=== PATIENT | female | born 1975 | race Caucasian/White ===

== ENCOUNTER 2017-04-27 12:02 | Emergency (ER) | payer BC, OTHER, SELFPAY ==
[2017-04-27 12:40] LABS: #Basophils 0.1 thou/uL (0.0-0.2); #Eosinphils 0.4 thou/uL (0.0-0.7); #Lymphocytes 3.1 thou/uL (1.20-3.40); #Monocytes 0.7 thou/uL (0.11-0.59); #Neutrophils 3.7 thou/uL (1.40-6.50); %Basophils 1.6 % (0.0-1.0); %Eosinophils 5.5 % (0.0-10.0); %Lymphocytes 38.6 % (21.0-51.0); %Neutrophils 45.3 % (42.0-75.0); Hemoglobin 13.7 g/dL (12.0-16.0); Mean Corpuscular HGB CONC 33.7 g/dL (32.0-36.0); Mean Corpuscular Hemoglobin 32.3 pg (27.0-31.0); Mean Corpuscular Volume 95.9 fl (81.0-99.0); Mean Platelet Volume 6.5 fL (7.4-10.4); Platelet Count 358 thou/uL (130-400); RBC Distribution Width 11.2 % (11.5-14.5); Red Blood Cell (RBC) Count 4.24 mill/uL (4.20-5.40); White Blood Cell (WBC) Count 8.1 thou/uL (4.8-10.8)
[2017-04-27 12:57] LABS: ALT (SGPT) 35 U/L (8-55); AST (SGOT) 21 U/L (5-34); Albumin 3.6 g/dL (3.5-5.0); Alkaline Phosphatase 82 U/L (40-150); Anion Gap 12 mmol/L (10-20); BUN (Urea Nitrogen) 9 mg/dL (7.0-18.7); Bilirubin, Total 0.3 mg/dL (0.2-1.2); Calc. Creatinine Clearance 0 mL/min (70-130); Calcium 9.2 mg/dL (7.8-10.44); Carbon Dioxide 27 mmol/L (22-29); Chloride 104 mmol/L (98-107); Estimated GFR-MDRD 85; Globulin 3.4 g/dL (2.4-3.5); Glucose 92 mg/dL (70-105); Potassium 4.3 mmol/L (3.5-5.1); Sodium 139 mmol/L (136-145)
[2017-04-27] MEDS ORDERED: cefTRIAXone\\ROCEPHIN 2 GM VIAL ONE (13:08)
[2017-04-27] MEDS ORDERED: methylPREDNISolone Sod Succ/PF 125 MG/2 ML VIAL ONE (13:08)
--- NOTE | 2017-04-27 13:23 | RAD ---
PA AND LATERAL OF THE CHEST: INDICATION: Cough. COMPARISON: None. FINDINGS: There is a linear area of opacity seen within the region of the right middle lobe which may reflect a n area of subsegmental volume loss versus an area of developing pneumonia. The left lung is clear. Cardiomediastinal silhouette is normal. No acute osseous abnormality is evident. IMPRESSION: Linear areas of opacity involving the right middle lobe are suspicious for subsegmental volume loss. This can be seen in patients with bronchiolitis or bronchitis. Would recommend radiographic followu p to resolution. POS: [facility]
== END 2017-04-27 14:24 | disposition home or self-care (01) ==
LOC: BURERS 12:02
DX: J18.9 Pneumonia, unspecified organism (principal); H66.90 Otitis media, unspecified, unspecified ear; J45.909 Unspecified asthma, uncomplicated; Z79.899 Other long term (current) drug therapy
CPT/HCPCS: 71020; 80053; 83880; 85025; 85379; 87040; 94640; 94760; 96365; 96375; J0696; J2930; J7620

== ENCOUNTER 2017-05-08 18:49 | Emergency (ER) | payer BC ==
--- NOTE | 2017-05-08 19:55 | RAD ---
CHEST TWO VIEWS: 05/08/17 COMPARISON: 04/27/17 study. HISTORY: Cough. History of pneumonia. Heart size and mediastinum are within normal limits. Right middle lobe parenchymal changes have resol wayne since the prior exam. IMPRESSION: Resolution of the right middle lobe infiltrate. POS: [facility]
== END 2017-05-08 20:03 | disposition home or self-care (01) ==
LOC: BURERS 18:49
DX: R05 Cough (principal); R06.02 Shortness of breath; J45.909 Unspecified asthma, uncomplicated
CPT/HCPCS: 71020; 93005

== ENCOUNTER 2018-03-03 02:11 | Emergency (ER) | payer BC ==
[2018-03-03 02:35] LABS: Clarity Cloudy (Clear)
[2018-03-03 02:36] LABS: Bilirubin Moderate (Negative); Blood, Urine Large (Negative); Glucose, Urine (Dipstick) Negative (Negative); Leukocyte Large (Negative); Nitrite Positive (Negative); Protein, Urine (Dipstick) > or equal to 300 mg/dL (Neg-Trace); Specific Gravity, Urine 1.025 (1.005-1.030)
[2018-03-03 02:39] LABS: RBC/HPF GREATER THAN 50-TNTC HPF (0-3)
[2018-03-03 02:40] LABS: Bacteria/HPF 2+ HPF (None Seen); Squamous Epithelial None Seen HPF (0-3); Yeast-All Forms 3+ HPF (None Seen)
[2018-03-03] MEDS ORDERED: Nitrofurantoin Monohyd/M-Cryst 100 MG CAP ONE (02:45)
[2018-03-03] MEDS ORDERED: Phenazopyridine HCl 97.5 MG TABLET ONE (02:45)
== END 2018-03-03 02:48 | disposition home or self-care (01) ==
LOC: BURERS 02:11
DX: N30.01 Acute cystitis with hematuria (principal); Z79.899 Other long term (current) drug therapy
CPT/HCPCS: 81003; 81015; 87077; 87086; 87186; 99283

== ENCOUNTER 2020-05-08 20:33 | Emergency (ER) | payer BC ==
[2020-05-08] MEDS ORDERED: diphenhydrAMINE 50 MG/ML VIAL ONE (20:46)
[2020-05-08] MEDS ORDERED: methylPREDNISolone Sod Succ/PF 125 MG/2 ML VIAL ONE (20:46)
[2020-05-08] MEDS ORDERED: Morphine 4 MG/ML VIAL ONE ×3 (20:46→21:40)
[2020-05-08 20:59] LABS: #Basophils 0.1 thou/uL (0.0-0.2); #Eosinphils 0.2 thou/uL (0.0-0.7); #Lymphocytes 4.5 thou/uL (1.20-3.40); #Monocytes 1.1 thou/uL (0.11-0.59); #Neutrophils 3.7 thou/uL (1.40-6.50); %Basophils 1.4 % (0.0-1.0); %Eosinophils 2.4 % (0.0-10.0); %Lymphocytes 46.4 % (21.0-51.0); %Monocytes 11.2 % (0.0-10.0); %Neutrophils 38.6 % (42.0-75.0); Hemoglobin 14.1 g/dL (12.0-16.0); Mean Corpuscular HGB CONC 32.9 g/dL (32.0-36.0); Mean Corpuscular Hemoglobin 31.9 pg (27.0-31.0); Mean Corpuscular Volume 96.9 fL (78.0-98.0); Platelet Count 276 thou/uL (130-400); RBC Distribution Width 12.4 % (11.5-14.5); Red Blood Cell (RBC) Count 4.42 mill/uL (4.20-5.40); White Blood Cell (WBC) Count 9.6 thou/uL (4.8-10.8)
[2020-05-08] MEDS ORDERED: Famotidine In NaCl 20 mg/50 ml Premix Bag ONE (21:02)
[2020-05-08 21:03] LABS: BHCG - Serum Negative (NEGATIVE); Pregs Control Background? CLEAR/WHITE (CLR/WHITE); Pregs Control Bar Appear? YES (CONTROL BAR)
[2020-05-08 21:17] LABS: ALT (SGPT) 18 U/L (8-55); AST (SGOT) 27 U/L (5-34); Albumin 4.5 g/dL (3.5-5.0); Alkaline Phosphatase 73 U/L (40-110); Anion Gap 19 mmol/L (10-20); BUN (Urea Nitrogen) 19 mg/dL (7.0-18.7); Bilirubin, Total 0.4 mg/dL (0.2-1.2); Calc. Creatinine Clearance 0 mL/min (70-130); Calcium 9.1 mg/dL (7.8-10.44); Carbon Dioxide 18 mmol/L (22-29); Chloride 104 mmol/L (98-107); Globulin 3.3 g/dL (2.4-3.5); Glucose 121 mg/dL (70-105); Potassium 3.7 mmol/L (3.5-5.1); Protein, Total 7.8 g/dL (6.0-8.3); Sodium 137 mmol/L (136-145)
[2020-05-08] MEDS ORDERED: Diazepam 10 MG/2 ML SYRINGE ONE ×3 (21:29→22:34)
[2020-05-08 23:51] LABS: Bilirubin Negative (Negative); Blood, Urine Trace (Negative); Clarity Clear (Clear); Glucose, Urine (Dipstick) Negative (Negative); Ketone, Urine Negative (Negative); Leukocyte Negative (Negative); Nitrite Negative (Negative); Protein, Urine (Dipstick) Negative (Neg-Trace); Urobilinogen 0.2 mg/dL (Less than 2)
[2020-05-08 23:53] LABS: Bacteria/HPF 3+ HPF (None Seen); RBC/HPF 0-3 HPF (0-3); Squamous Epithelial 0-3 HPF (0-3); WBC/HPF None Seen HPF (0-3)
[2020-05-09] MEDS ORDERED: Diazepam 10 MG/2 ML SYRINGE ONE ×3 (00:32→06:03)
[2020-05-09] MEDS ORDERED: Ibuprofen 200 MG TAB ONE (02:21)
[2020-05-09] MEDS ORDERED: Lorazepam 2 MG/ML VIAL ONE (08:33)
[2020-05-09] MEDS ORDERED: Morphine 4 MG/ML VIAL ONE ×2 (08:51→12:20)
[2020-05-09 09:14] LABS: ALT (SGPT) 15 U/L (8-55); AST (SGOT) 22 U/L (5-34); Albumin 4.1 g/dL (3.5-5.0); Alkaline Phosphatase 63 U/L (40-110); Anion Gap 15 mmol/L (10-20); BUN (Urea Nitrogen) 14 mg/dL (7.0-18.7); Bilirubin, Total 0.5 mg/dL (0.2-1.2); Calc. Creatinine Clearance 0 mL/min (70-130); Calcium 8.5 mg/dL (7.8-10.44); Carbon Dioxide 20 mmol/L (22-29); Chloride 106 mmol/L (98-107); Globulin 2.7 g/dL (2.4-3.5); Glucose 149 mg/dL (70-105); Potassium 4.4 mmol/L (3.5-5.1); Protein, Total 6.8 g/dL (6.0-8.3); Sodium 137 mmol/L (136-145)
[2020-05-09 12:31] LABS: Amphetamine Not Detected (NotDetected); Barbiturates Screen Not Detected (NotDetected); Benzodiazepine Screen Not Detected (NotDetected); Cocaine Metabolite Screen Not Detected (NotDetected); Medtox Control Line Valid? VALID (VALID); Methadone Not Detected (NotDetected); Methamphetamine Not Detected (NotDetected); Opiate Screen Detected (NotDetected); Oxycodone Screen Not Detected (NotDetected); Phencyclidine (PCP) Not Detected (NotDetected); THC/Cannabinoid Screen Not Detected (NotDetected); Tricyclic Screen Not Detected (NotDetected)
== END 2020-05-09 14:11 | disposition short-term general hospital (02) ==
LOC: BURERS 20:33
DX: T63.311A Toxic effect of venom of black widow spider, accidental (unintentional), initial encounter (principal); E03.9 Hypothyroidism, unspecified; Z79.899 Other long term (current) drug therapy
CPT/HCPCS: 36415; 80053; 80306; 81003; 81015; 82550; 84703; 85025; 93005; 96372; 96374; 96375; 96376; J1200; J2060; J2270; J2930; J3360